=== PATIENT | male | born 1965 | race Caucasian/White ===

== ENCOUNTER → 2023-04-04 | Outpatient (CLI) | payer OTHER, BC ==
[2023-04-04 07:22] LABS: Basophils # (auto) 0 10 ^3/uL (0-0.2); Basophils % (auto) 0.5 % (0.0-2.0); Eosinophils # (auto) 0.1 10 ^3/uL (0-0.8); Eosinophils % (auto) 1.8 % (0.0-7.0); Hematocrit 47.1 % (41.0-53.0); Hemoglobin 15.9 g/dL (13.5-17.5); Lymphocytes # (auto) 1.8 10 ^3/uL (0.4-5.4); Lymphocytes % (auto) 27.9 % (10.0-50.0); Mean Corpuscular Hgb Conc. 33.7 g/dL (32.0-36.0); Mean Corpuscular Volume 91.9 fL (80.0-100.0); Monocytes # (auto) 0.5 10 ^3/uL (0-1.3); Monocytes % (auto) 8.5 % (0.0-12.0); Neutrophils # (auto) 3.9 10 ^3/uL (1.6-8.6); Neutrophils % (auto) 61.3 % (37.0-80.0); Nucleated Red Blood Cells % 0.2 %; Red Blood Cells 5.13 10^6/uL (4.5-5.90); Red Cell Distribution Width 13.1 % (11.8-14.3); White Blood Cell 6.4 10^3/uL (4.4-10.8)
[2023-04-04 07:35] LABS: Urine Bacteria NONE SEEN /hpf (None Seen); Urine Blood TRACE /uL (Negative); Urine Clarity Clear (Clear); Urine Color Yellow (Yellow); Urine Mucus FEW (None Seen); Urine Protein, UAD TRACE (Negative); Urine Specific Gravity 1.026 (1.001-1.035); Urine Urobilinogen Normal (Negative); Urine WBC 2 /hpf (0 - 3); Urine pH 5.5 (5.0-8.0)
[2023-04-04 08:07] LABS: Alanine Aminotransferase 34 U/L (7-40); Alkaline Phosphatase 85 U/L (46-116); Anion Gap 7 (5-15); BUN/Creatinine Ratio 10.8 (10.0-20.0); Blood Urea Nitrogen 10 mg/dL (9-23); Calcium 9.4 mg/dL (8.5-10.1); Carbon Dioxide 24 mmol/L (20-30); Chloride 107 mmol/L (98-107); Glucose 109 mg/dL (74-106); Potassium 4.1 mmol/L (3.5-5.1); Sodium 138 mmol/L (136-145); Triglycerides 148 mg/dL (< 150)
[2023-04-04 08:08] LABS: LDL Cholesterol 98 mg/dL (< 100)
[2023-04-04 08:09] LABS: Albumin 4.7 g/dL (3.2-4.8); Aspartate Aminotransferase 15 U/L (13-40); Bilirubin, Total 0.6 mg/dL (0.2-1.0); Cholesterol 161 mg/dL (< 200); HDL Cholesterol 41 mg/dL (40-59); Total Protein 6.8 g/dL (5.7-8.2)
[2023-04-04 09:00] LABS: Uric Acid 4.3 mg/dL (3.7-9.2)
[2023-04-04 09:02] LABS: Magnesium 2.1 mg/dL (1.6-2.6)
[2023-04-04 11:58] LABS: Folate (Folic Acid) 16.91 ng/mL (>5.38)
== END | disposition home or self-care (01) ==
LOC: LAB 06:46
PROVIDERS: ATTEND Internal Medicine
DX: E61.2 Magnesium deficiency (principal); E78.9 Disorder of lipoprotein metabolism, unspecified; R78.89 Finding of other specified substances, not normally found in blood; R68.89 Other general symptoms and signs; R94.6 Abnormal results of thyroid function studies; E79.0 Hyperuricemia without signs of inflammatory arthritis and tophaceous disease; R82.991 Hypocitraturia; E85.9 Amyloidosis, unspecified; R82.90 Unspecified abnormal findings in urine; R82.79 Other abnormal findings on microbiological examination of urine; D51.9 Vitamin B12 deficiency anemia, unspecified
CPT/HCPCS: 36415; 80053; 80061; 81001; 82306; 82607; 82746; 83036; 83735; 84443; 84550; 85025; 87086